=== PATIENT | female | born 1965 | race African-American/Black ===

== ENCOUNTER 2022-02-24 10:28 | Outpatient (CLI) | payer BC, SELFPAY ==
--- NOTE | ~2022-02-24 | MR_ITS ---
EXAMINATION: MR hip RT wo con DATE: 02/24/2022 11:41 INDICATION: Right hip/groin pain. TECHNIQUE: Magnetic resonance imaging (MRI) of the right hip was performed without intravenous contr ast. Sequences included full-field axial PD-weighted FS FSE and T1-weighted FSE, coronal of the pelvi s with PD-weighted FS FSE, small field of view of the affected hip with axial PD-weighted FS FSE, sa gittal PD-weighted FS FSE and coronal PD weighted FS FSE. Additional radial T1-weighted FGR oriented orthogonal to the acetabular rim were obtained for evaluation of the labrum. COMPARISON: None FINDINGS: Bones/labrum/cartilage: There is metallic magnetic field artifact associated with a left total hip arthroplasty which obscure s the immediately adjacent bone and soft tissues. Low signal intensity bone island at the superior ri ght acetabulum. Normal marrow signal. No reactive edema, fracture, osteonecrosis or pathologic marrow replacing process. Mild lumbar dextrocurvature with moderate to severe spondylosis. Mild right hip o steoarthritis with nonuniform joint space narrowing with partial thickness cartilage loss most promin ent posteriorly and anterosuperiorly. No degenerative subchondral changes. There is diffuse labral de generation with marginal osteophytes along the rim of the acetabulum replacing a significant portion of the labral tissue. Fluid: Physiologic amount fluid at the right hip joint. No bursitis or other abnormal fluid collections iden tified. Soft tissues: Normal and symmetric muscle bulk and signal in the pelvis and visualized proximal thighs. Mild thicke noe and mild increased signal of the distal right gluteus medius tendon consistent with mild tendino kana without tear. The iliopsoas, remaining gluteal and proximal hamstring tendons are normal. Limit ed evaluation of visceral organs of the pelvis is unremarkable including normal appendix. No patholo gically enlarged pelvic/inguinal lymphadenopathy. IMPRESSION: 1. 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 2. 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 3. Mild lumbar dextrocurvature with moderate to severe spondylosis. Reviewed, dictated and finalized at location A. [employer] [employer]IST
== END 2022-02-24 10:29 ==
PROVIDERS: PCP Family Medicine; Visit Provider Orthopaedic Surgery
DX: M16.11 Unilateral primary osteoarthritis, right hip (principal)
CPT/HCPCS: 73721